=== PATIENT | female | born 1965 | race Two or more races ===

== ENCOUNTER → 2022-02-11 | Emergency (ER) | payer OTHER ==
[~2022-02-11] VITALS: Ht 152.4 cm; Wt 75.3 kg
[~2022-02-11] MED LIST: PROMETRIUM200 MG PO
== END | disposition left against medical advice (07) ==
LOC: ER 23:08
DX: Z53.21 Procedure and treatment not carried out due to patient leaving prior to being seen by health care provider (principal)